=== PATIENT | female | born 1995 | race American Indian/Alaskan Native ===

== ENCOUNTER 2018-11-10 18:24 | Emergency (ER) | payer SELFPAY ==
[2018-11-10 19:30] VITALS: BP 126/86
--- NOTE | 2018-11-10 22:56 | XRay Report ---
PROCEDURE: XR KNEE 1-2V RT TECHNIQUE: AP and lateral view of the right knee was obtained. HISTORY: pain s/p popping out of place COMPARISONS: None FINDINGS: There is no evidence of fracture or dislocation. Bone density appears normal. Joint spaces are well p reserved. The articular surfaces are smooth. Moderate-sized joint effusion is visualized. No other ab normalities are seen. IMPRESSION: Moderate-sized joint effusion present otherwise negative exam. This document is electronically signed by Teodoro Gil MD., November 10 2018 10:53:44 PM ET
--- NOTE | 2018-11-10 23:20 | Emergency Department Report ---
ED Lower Extremity HPI - General Chief Complaint: Extremity Injury, Lower Stated Complaint: R KNEE PAIN Time Seen by Provider: 11/10/18 23:20 Source: patient Mode of arrival: Ambulatory Limitations: No Limitations - History of Present Illness Initial Comments: Patient is a 23-year-old female that presents emergency room with complaints of right knee pain. States the pain is centered at [place] her pain states the pain is better with rest and worse with movement and ambulation. Patient states she has difficulties bearing weight on her right leg due to the knee pain. Patient states the pain is not radiating. Patient states she has had knee problems in the past and has never seen an orthopedist for. Patient states that she was diagnosed with a possible anterior cruciate ligament or PCL tear but never followed up with it. MD Complaint: knee injury -: Sudden Injury: Knee: Right Type of Injury: hyperflexion Place: street/outdoors Severity: severe Severity scale (0 -10): 10 Improves With: rest Worsens With: weight bearing, movement, palpation Context: jumping Associated Symptoms: swelling, able to partially bear weight - Related Data Previous Rx's Medication Instructions Recorded Last Taken Type Amoxicillin [Trimox CAP] 500 mg PO Q8H #30 capsule 07/17/15 Unknown Rx HYDROcodone/APAP 5-325 [[place] 1 each PO Q6HR PRN #12 tablet 11/11/18 Unknown Rx 5-325 mg TAB] Allergies Allergy/AdvReac Type Severity Reaction Status Date / Time No Known Allergies Allergy Verified 11/10/18 20:25 ED Review of Systems ROS: Stated complaint: R KNEE PAIN Other details as noted in HPI Constitutional: denies: chills, fever, malaise, weakness Eyes: denies: eye pain, eye discharge, vision change ENT: denies: ear pain, throat pain Respiratory: denies: cough, shortness of breath, wheezing Cardiovascular: denies: chest pain, palpitations Endocrine: no symptoms reported Gastrointestinal: denies: abdominal pain, nausea, diarrhea Genitourinary: denies: urgency, dysuria, discharge Musculoskeletal: joint swelling. denies: back pain, arthralgia Skin: denies: rash, lesions Neurological: denies: headache, weakness, paresthesias Psychiatric: denies: anxiety, depression Hematological/Lymphatic: denies: easy bleeding, easy bruising ED Past Medical Hx - Past Medical History Previous Medical History?: No Additional medical history: UTI, kidney stones - Surgical History Past Surgical History?: No - Social History Smoking Status: Never Smoker Substance Use Type: Alcohol, Marijuana - Medications Home Medications: Home Medications Medication Instructions Recorded Confirmed Last Taken Type Amoxicillin [Trimox CAP] 500 mg PO Q8H #30 capsule 07/17/15 Unknown Rx HYDROcodone/APAP 5-325 [[place] 1 each PO Q6HR PRN #12 tablet 11/11/18 Unknown Rx 5-325 mg TAB] ED Physical Exam - General Limitations: No Limitations General appearance: alert, in no apparent distress - Head Head exam: Present: atraumatic, normocephalic - Eye Eye exam: Present: normal appearance - ENT ENT exam: Present: mucous membranes moist - Neck Neck exam: Present: normal inspection - Respiratory Respiratory exam: Present: normal lung sounds bilaterally. Absent: respiratory distress - Cardiovascular Cardiovascular Exam: Present: regular rate, normal rhythm. Absent: systolic murmur, diastolic murmur, rubs, gallop - GI/Abdominal GI/Abdominal exam: Present: soft, normal bowel sounds - Extremities Exam Extremities exam: Present: tenderness (right knee tenderness), joint swelling (right knee swelling) - Back Exam Back exam: Present: normal inspection - Neurological Exam Neurological exam: Present: alert, oriented X3 - Psychiatric Psychiatric exam: Present: normal affect, normal mood - Skin Skin exam: Present: warm, dry, intact, normal color. Absent: rash ED Course Vital Signs 11/10/18 19:27 Temperature 98.0 F Pulse Rate 96 H Respiratory 16 Rate Blood Pressure 126/86 O2 Sat by Pulse 100 Oximetry - Reevaluation(s) Reevaluation #1: Discussed all results with patient. Patient's findings are consistent with knee sprain. She will be given knee immobilizer and crutches. 11/11/18 00:02 Patient's knee immobilizer is in place and crutches training has been done. Neurovascular intact 11/11/18 00:26 ED Lower Extremity MDM - Radiology Data Radiology results: report reviewed PROCEDURE: XR KNEE 1-2V RT TECHNIQUE: AP and lateral view of the right knee was obtained. HISTORY: pain s/p popping out of place COMPARISONS: None FINDINGS: There is no evidence of fracture or dislocation. Bone density appears normal. Joint spaces are well preserved. The articular surfaces are smooth. Moderate-sized joint effusion is visualized. No other abnormalities are seen. IMPRESSION: Moderate-sized joint effusion present otherwise negative exam. - Medical Decision Making Patient is a 23-year-old female that presents emergency room with right knee pain and swelling. Patient findings are consistent with a knee sprain and possible ligamental injury. Patient to follow up with orthopedist. Patient given orthopedic information. Patient given discharge instruction patient is discharge. Patient voiced understanding of all discharge instructions. Patient's x-ray was negative for fracture. Patient had a knee immobilizer and crutches training done in ER. Immobilizer and good position. - Differential Diagnosis knee sprain. Knee pain. Critical care attestation.: If time is entered above; I have spent that time in minutes in the direct care of this critically ill patient, excluding procedure time. ED Disposition Clinical Impression: Knee swelling, Effusion of knee joint right Knee pain, acute Qualifiers: Laterality: right Qualified Code(s): M25.561 - Pain in right knee Knee sprain Qualifiers: Encounter type: initial encounter Involved ligament of knee: unspecified ligament Laterality: right Qualified Code(s): S83.91XA - Sprain of unspecified site of right knee, initial encounter Disposition: TO HOME OR SELFCARE Is pt being admited?: No Does the pt Need Aspirin: No Condition: Stable Instructions: Knee Sprain (ED), Anterior Cruciate Ligament Injury (ED), Knee Effusion (ED), Knee Pain (ED) Additional Instructions: Patient to follow up with primary care in 2-3 days. Patient to follow up with orthopedist in 2-3 days. Patient to return to ER if condition worsens. Patient to take ibuprofen or Tylenol when necessary for pain. Patient to rest. Patient to avoid strenuous activity. Patient to RICE. Patient to elevate limb. He should use crutches as directed. Patient to be nonweightbearing on the right leg until cleared by orthopedics. Prescriptions: HYDROcodone/APAP 5-325 [[place] 5-325 mg TAB] 1 each PO Q6HR PRN #12 tablet PRN Reason: Pain Referrals: DONI NGUYEN MD [Primary Care Provider] - 2-3 Days RIC DENG MD [Staff Physician] - 2-3 Days Time of Disposition: 00:27
[2018-11-11] MEDS ORDERED: NORCO 5/325 ONE (00:08)
[2018-11-11] MEDS ORDERED: IBUPROFEN ONE (00:08)
[2018-11-11] MEDS ORDERED: NORCO 5/325 PO ONE (04:13)
[2018-11-11] MEDS ORDERED: IBUPROFEN PO ONE (04:14)
== END 2018-11-11 01:00 | disposition home or self-care (01) ==
LOC: ED 18:24
DX: S83.91XA Sprain of unspecified site of right knee, initial encounter (principal); F12.10 Cannabis abuse, uncomplicated; Z87.442 Personal history of urinary calculi; X58.XXXA Exposure to other specified factors, initial encounter; Y93.89 Activity, other specified; Y92.410 Unspecified street and highway as the place of occurrence of the external cause; Y99.8 Other external cause status

== ENCOUNTER 2021-10-16 19:27 | Emergency (ER) | payer SELFPAY | END 2021-10-16 21:30 | disposition left against medical advice (07) | LOC: ED 19:27 | DX: O26.891 Other specified pregnancy related conditions, first trimester (principal); R10.9 Unspecified abdominal pain; Z53.21 Procedure and treatment not carried out due to patient leaving prior to being seen by health care provider; Z3A.00 Weeks of gestation of pregnancy not specified ==